=== PATIENT | female | born 1970 | race Caucasian/White ===

== ENCOUNTER 2018-03-10 16:53 | Inpatient (IN) ==
[2018-03-10 17:19] LABS: Hematocrit 37.2 % (37.0-47.0); Hemoglobin 12.4 gm/dL (12.5-16.0); Mean Cell Volume 96.1 fl (78-100); Mean Corpuscular Hgb Conc 33.3 g/dl (32-36); Mean Platelet Volume 13.3 fl (8-12.5); Neutrophil # 15.2 K/mm3 (1.3-6.0); Neutrophil % 84.9 % (42-75.0); Platelet Count 190 K/mm3 (150-450); Red Blood Count 3.87 M/mm3 (4.2-5.4); Red Cell Distribution Width 13.5 % (11.5-14.0); White Blood Count 17.9 K/mm3 (4.0-10.5)
[2018-03-10] MEDS ORDERED: INSULIN REGULAR, HUMAN 100 UNITS/ML VIAL IV ONE (17:25)
[2018-03-10] MEDS ORDERED: NORMAL SALINE 1,000 ML IV ONE ×2 (17:25→19:36)
[2018-03-10 17:41] LABS: ALT 22 U/L (19-67); AST 16 U/L (0-48); Albumin * 3.9 gm/dl (3.4-5.0); Alkaline Phosphatase * 131 U/L (50-170); Anion Gap 38.3 mmol/L (6.8-13.8); BUN/Creatinine Ratio 12.9 (9.0-21.6); Bilirubin, Total 0.8 mg/dL (0.0-1.1); Blood Urea Nitrogen 18 mg/dL (3-23); Calcium * 9.2 mg/dL (7.9-10.9); Chloride 92 mmol/L (97-106); Potassium 4.3 mmol/L (3.4-4.6); Sodium 134 mmol/L (132-142); Total Protein 7.2 gm/dL (6.2-8.2)
[2018-03-10 17:47] LABS: Glucose * 698 mg/dL (70-110)
[2018-03-10] MEDS ORDERED: INSULIN REGULAR, HUMAN 100 UNITS in NORMAL SALINE 100 ML IV PRN ×2 (17:54)
--- NOTE | 2018-03-10 18:01 | ERNOTE ---
Medical Problem HPI - General Chief Complaint: Diabetes Related Problem Time Seen by Provider: 03/10/18 17:18 Source: family Exam Limitations: no limitations - Immun/Allergies/Home Medications Immunizations: IMMUNIZATION HX Immunizations Up to Date Yes Allergies/Adverse Reactions: Allergies aspirin Allergy (Severe, Verified 03/10/18 17:12) Shortness of Breath Home Medications: HOME MEDICATIONS Atorvastatin Calcium [Lipitor] 40 mg PO DAILY 09/16/13 [Last Taken Unknown] FLUoxetine HCL [Prozac] 20 mg PO DAILY 09/16/13 [Last Taken Unknown] Levothyroxine Sodium [Synthroid] 100 mcg PO DAILY 09/16/13 [Last Taken Unknown] Lisinopril [Zestril] 2.5 mg PO DAILY 09/16/13 [Last Taken Unknown] Pantoprazole Sodium [Protonix] 40 mg PO DAILY 09/16/13 [Last Taken Unknown] Acetaminophen [Tylenol] 650 mg PO QID PRN #0 tablet 09/19/13 [Last Taken Unknown ] Albuterol Sulfate [Albuterol Sulfate Hfa] 2 puff IH Q4H PRN #0 09/19/13 [Last Taken Unknown] Insulin Glargine,Hum.rec.anlog [Lantus] 20 units SC DAILY #1 vial 09/19/13 [ Last Taken Unknown] Insulin Lispro [Humalog] 1 unit SQ AC #1 vial 09/19/13 [Last Taken Unknown] - History of Present History Narrative: Patient arrives confused with her , who states she's been throwing up all day. He states she is a known diabetic and frequently goes into DKA. Patient is unable to assist in other history or the physical. Timing: constant Severity: severe Review of Systems - Review of Systems Constitutional: Present: See HPI EYE: Present: no symptoms reported ENT: Present: no symptoms reported Respiratory: Present: no symptoms reported Cardiology: Present: no symptoms reported Gastrointestinal/Abdominal: Present: nausea, vomiting Genitourinary: Present: no symptoms reported Musculoskeletal: Present: no symptoms reported Skin: Present: no symptoms reported Neurological: Present: other - somewhat confused and responds appropriately Endocrine: Present: no symptoms reported Hematologic/Lymphatic: Present: no symptoms reported Psych: Present: no symptoms reported Medical History (Last Updated 03/10/18 @ 17:20 by Natty Barraza RN) Asthma Depression Diabetes GERD (gastroesophageal reflux disease) Hx of insertion of insulin pump Hyperlipidemia Hypothyroidism Surgical History: Surgical History (Last Updated 03/10/18 @ 17:20 by Natty Barraza RN) Surgical history unknown Family History: Family History (Last Updated 03/10/18 @ 17:20 by Natty Barraza RN) Other Unknown family medical history Social History: Preferred Language Nigerien Do you have any sikh or No cultural preference? Smoking Status Never smoker Alcohol Use rarely Drug Use marijuana Physical Exam - Physical Exam General Appearance: Present: wd/wn, alert, severe distress Head Exam: Present: normal inspection, no evidence of injury Eye Exam: Normal inspection: bilateral, PERRL: bilateral Ears, Nose, Throat: Present: normal pharynx, dry mucous membranes Neck: Present: normal inspection, nontender Respiratory: Present: no accessory muscle use, chest nontender, lungs clear, other - tachypneic Cardiovascular/Chest: Present: no murmur, normal peripheral pulses, tachycardia Gastrointestinal/Abdominal: Present: normal bowel sounds, nontender, nondistended, soft, no organomegaly Rectal Exam: Present: deferred Pelvic Exam: Present: deferred Extremity Exam: Present: normal inspection, non-tender, no edema, normal range of motion Neurological Exam: Present: other - somewhat lethargic and poorly responsive Skin Exam: Present: normal color, other - decreased skin turgor Lymphatic Exam: Present: no adenopathy ED Progress - Results and Orders Patient's Lab Results:: I have reviewed the patient's lab results. - Vital Signs Patient's Vital Signs:: I have reviewed the patient's vital signs. Vital Signs: Vital Signs 03/10/18 17:09 03/10/18 17:10 03/10/18 17:45 Temperature 37.4 C 36.7 C Pulse Rate 121 H 117 H 116 H Respiratory Rate 29 H 24 H Blood Pressure 125/52 117/52 O2 Sat by Pulse Oximetry 99 99 - Progress/Reassessment Chief Complaint: Diabetes Related Problem Departure Clinical Impression: Ketoacidosis in type II diabetes mellitus - Departure Disposition: Still a patient Condition: Critical Referrals: ABDOULAYE WHITE [Primary Care Provider] - Critical Care Note - Critical Care Note Total Time (mins): 35 Comments: Patient required both IV insulin as well as an insulin drip coupled with 2 L of fluid while in the emergency department to start to bring about some change in a patient. Patient be admitted to the intensive care unit for insulin drip and continuing hydration.
[2018-03-10] MEDS ORDERED: NORMAL SALINE 1,000 ML IV PRN (19:38)
[2018-03-10 19:48] LABS: Anion Gap 32.5 mmol/L (6.8-13.8); BUN/Creatinine Ratio 13.7 (9.0-21.6); Blood Urea Nitrogen 18 mg/dL (3-23); Calcium * 8.5 mg/dL (7.9-10.9); Carbon Dioxide 9.4 mmol/L (24-32.6); Chloride 98 mmol/L (97-106); Estimated Creat Clear 49.7; Glucose * 450 mg/dL (70-110); Potassium 3.9 mmol/L (3.4-4.6); Sodium 136 mmol/L (132-142); Troponin I Less than 0.017 ng/mL (0.00-0.10)
[2018-03-10 20:28] LABS: Urine Bilirubin 1 mg/dl (NEGATIVE); Urine Ketone Large mg/dL (NEGATIVE); Urine Nitrite Negative (NEGATIVE); Urine Protein Negative (NEGATIVE); Urine Specific Gravity 1.025 SP.GR. (1.005-1.010); Urine Urobilinogen Normal (NORMAL); Urine pH 5.5 pH (5.0-7.0)
--- NOTE | 2018-03-10 20:31 | HP ---
Chief Complaint - Chief Complaint Date of Service: 03/10/18 Time of Service: 20:12 Chief Complaint: "dka" History of Present Illness: Patient states she is currently in DKA and feels very poor. She reports being out of her insulin pump supplies for a few days, and had nausea and vomiting today. She usually uses about 34 U humalog daily, with a basal rate of 0.625U/ hr. She gives herself 1 U humalog per 15 carbs. She felt warm, but no definite fever. Denies cough, shortness of breath, abdominal pain, skin changes. She does have diarrhea at baseline. She was in DKA previously, around 4 years prior. She was given a lantus pen by her PCP, but has not used it. On arriving to the ED, history obtained from family member as she her mental status was altered. At the time of my interview, she is able to answer questions appropriately. She was started on 6U/hr insulin drip, which has been decreased to 3U/hr. She was also given one bolus NS. Medical History (Last Updated 03/10/18 @ 17:20 by Natty Barraza RN) Asthma Depression Diabetes GERD (gastroesophageal reflux disease) Hx of insertion of insulin pump Hyperlipidemia Hypothyroidism Surgical History: Surgical History (Last Updated 03/10/18 @ 17:20 by Natty Barraza RN) Surgical history unknown Family History: Family History (Last Updated 03/10/18 @ 17:20 by Natty Barraza RN) Other Unknown family medical history Social History: Preferred Language Yemeni Do you have any congregation or No cultural preference? Smoking Status Never smoker Alcohol Use rarely Drug Use marijuana Review Of Systems (GEN) - Review of Systems Generalized/Overall Review: Absent: Fever, Weight loss, Weight gain Respiratory: Absent: Cough Cardiac: Absent: Chest Pain, Edema Abdominal: Present: Nausea, Vomiting, Diarrhea. Absent: Abdominal Pain Genitourinary: Absent: Dysuria Musculoskeletal: Present: Back Pain Neurological: Absent: Seizure Skin: Present: Dryness Immunizations: IMMUNIZATION HX Immunizations Up to Date Yes Allergies/Adverse Reactions: Allergies Allergy/AdvReac Type Severity Reaction Status Date / Time aspirin Allergy Severe Shortness Verified 03/10/18 17:12 of Breath Home Medications: HOME MEDICATIONS Atorvastatin Calcium [Lipitor] 40 mg PO DAILY 09/16/13 [Last Taken Unknown] FLUoxetine HCL [Prozac] 20 mg PO DAILY 09/16/13 [Last Taken Unknown] Levothyroxine Sodium [Synthroid] 100 mcg PO DAILY 09/16/13 [Last Taken Unknown] Lisinopril [Zestril] 2.5 mg PO DAILY 09/16/13 [Last Taken Unknown] Pantoprazole Sodium [Protonix] 40 mg PO DAILY 09/16/13 [Last Taken Unknown] Acetaminophen [Tylenol] 650 mg PO QID PRN #0 tablet 09/19/13 [Last Taken Unknown ] Albuterol Sulfate [Albuterol Sulfate Hfa] 2 puff IH Q4H PRN #0 09/19/13 [Last Taken Unknown] Insulin Glargine,Hum.rec.anlog [Lantus] 20 units SC DAILY #1 vial 09/19/13 [ Last Taken Unknown] Insulin Lispro [Humalog] 1 unit SQ AC #1 vial 09/19/13 [Last Taken Unknown] Exam - Exam Vital Signs: Vital Signs - Last Taken Temp 36.7 C 03/10/18 17:45 Pulse 123 H 03/10/18 19:18 Resp 20 03/10/18 19:18 BP 126/56 03/10/18 19:18 Pulse Ox 99 03/10/18 19:18 Constitutional: Present: Oriented x3, Cooperative, Mild distress ENT Exam: Present: dry mucous membranes Eye Exam: bilateral eye: EOMI Respiratory: Present: no respiratory distress, No rales, No wheezing, other - tachypneic. Absent: respiratory distress Cardiovascular/Chest: Present: no edema, tachycardia, systolic murmur Abdomen: Present: Normal bowel sounds, soft, nontender Extremity: Absent: lower extremity edema Skin Exam: Present: normal color Neurologic: Present: normal mood/affect Eye contact: Present: cooperative Thoughts: Present: normal thought pattern Diagnostic Studies: Abnormal Lab Results 03/10/18 03/10/18 03/10/18 Range/Units 17:18 17:18 17:18 WBC 17.9 H (4.0-10.5) K/mm3 RBC 3.87 L (4.2-5.4) M/mm3 Hgb 12.4 L (12.5-16.0) gm/dL MCH 32.0 H (27-31) pg MPV 13.3 H (8-12.5) fl Immature Gran % (Auto) 0.60 H (0.001-0.429) % Immature Gran # (Auto) 0.10 H (0.000-0.0310) K/mm3 Neutrophils % 84.9 H (42-75.0) % Lymphocytes % 9.3 L (20-51) % Neutrophils # 15.2 H (1.3-6.0) K/mm3 VBG pH 7.252 L (7.32-7.43) Plasma Sodium 144 H (130-142) mmol/L Chloride 92 L (97-106) mmol/L Carbon Dioxide 8.0 L (24-32.6) mmol/L Anion Gap 38.3 H (6.8-13.8) mmol/L Est GFR (Non-Af Amer) 43 L D (60-130) mL/min Random Glucose 698 H* (70-110) mg/dL Serum Ketones Positive - 20mg/dl H (NEGATIVE) 03/10/18 Range/Units 19:29 WBC (4.0-10.5) K/mm3 RBC (4.2-5.4) M/mm3 Hgb (12.5-16.0) gm/dL MCH (27-31) pg MPV (8-12.5) fl Immature Gran % (Auto) (0.001-0.429) % Immature Gran # (Auto) (0.000-0.0310) K/mm3 Neutrophils % (42-75.0) % Lymphocytes % (20-51) % Neutrophils # (1.3-6.0) K/mm3 VBG pH (7.32-7.43) Plasma Sodium (130-142) mmol/L Chloride (97-106) mmol/L Carbon Dioxide 9.4 L (24-32.6) mmol/L Anion Gap 32.5 H (6.8-13.8) mmol/L Est GFR (Non-Af Amer) 46 L (60-130) mL/min Random Glucose 450 H D (70-110) mg/dL Serum Ketones (NEGATIVE) Laboratory Results WBC 17.9 K/mm3 (4.0-10.5) H 03/10/18 17:18 RBC 3.87 M/mm3 (4.2-5.4) L 03/10/18 17:18 Hgb 12.4 gm/dL (12.5-16.0) L 03/10/18 17:18 Hct 37.2 % (37.0-47.0) 03/10/18 17:18 MCV 96.1 fl (78-100) 03/10/18 17:18 MCH 32.0 pg (27-31) H 03/10/18 17:18 MCHC 33.3 g/dl (32-36) 03/10/18 17:18 RDW 13.5 % (11.5-14.0) 03/10/18 17:18 Plt Count 190 K/mm3 (150-450) 03/10/18 17:18 MPV 13.3 fl (8-12.5) H 03/10/18 17:18 Immature Gran % (Auto) 0.60 % (0.001-0.429) H 03/10/18 17:18 Immature Gran # (Auto) 0.10 K/mm3 (0.000-0.0310) H 03/10/18 17:18 Neutrophils % 84.9 % (42-75.0) H 03/10/18 17:18 Lymphocytes % 9.3 % (20-51) L 03/10/18 17:18 Monocytes % 5.0 % (0.0-9) 03/10/18 17:18 Eosinophils % 0.0 % (0.0-3.0) 03/10/18 17:18 Basophils % 0.2 % (0.0-1.0) 03/10/18 17:18 Nucleated RBC % 0.0 k/mm3 (0-1) 03/10/18 17:18 Neutrophils # 15.2 K/mm3 (1.3-6.0) H 03/10/18 17:18 Lymphocytes # 1.67 k/mm3 (1.5-3.5) 03/10/18 17:18 Monocytes # 0.9 k/mm3 (0.0-1.0) 03/10/18 17:18 Eosinophils # 0.0 k/mm3 (0.0-0.7) 03/10/18 17:18 Absolute Basophils 0.0 k/mm3 (0.0-0.1) 03/10/18 17:18 VBG pH 7.252 (7.32-7.43) L 03/10/18 17:18 Sodium 136 mmol/L (132-142) 03/10/18 19:29 Plasma Sodium 142 mmol/L (130-142) 03/10/18 19:29 Potassium 3.9 mmol/L (3.4-4.6) 03/10/18 19:29 Chloride 98 mmol/L (97-106) 03/10/18 19:29 Carbon Dioxide 9.4 mmol/L (24-32.6) L 03/10/18 19:29 Anion Gap 32.5 mmol/L (6.8-13.8) H 03/10/18 19:29 BUN 18 mg/dL (3-23) 03/10/18 19:29 Creatinine 1.31 mg/dL (0.4-1.4) 03/10/18 19:29 Est GFR (Non-Af Amer) 46 mL/min (60-130) L 03/10/18 19:29 BUN/Creatinine Ratio 13.7 (9.0-21.6) 03/10/18 19:29 Random Glucose 450 mg/dL (70-110) H D 03/10/18 19:29 Calcium 8.5 mg/dL (7.9-10.9) 03/10/18 19:29 Calcium Adj for Albumin 9.0 mg/dL (8.4-10.2) 03/10/18 17:18 Total Bilirubin 0.8 mg/dL (0.0-1.1) 03/10/18 17:18 AST 16 U/L (0-48) 03/10/18 17:18 ALT 22 U/L (19-67) 03/10/18 17:18 Alkaline Phosphatase 131 U/L (50-170) 03/10/18 17:18 Troponin I Less than 0.017 ng/mL (0.00-0.10) 03/10/18 19:29 Total Protein 7.2 gm/dL (6.2-8.2) 03/10/18 17:18 Albumin 3.9 gm/dl (3.4-5.0) 03/10/18 17:18 Serum Ketones Positive - 20mg/dl (NEGATIVE) H 03/10/18 17:18 Assessment/Plan - Narrative Narrative: Will continue 3 U/hr insulin drip, and administer additional NS bolus. Will then continue NS at 250 ml/hr. Stat BMP pending. Will decrease rate of drip as CO2 and anion gap correct. Will continue to closely monitor electrolytes every two hours, and add potassium to her fluids if it is less than 4.0. Troponin, blood culture, urine cultures pending. Will add D5 to fluids as glucose approaches 250. NPO until gap is closed. Likely source of DKA is nonadherence, but cultures and troponin pending. - Assessment/Plan (1) Ketoacidosis in type II diabetes mellitus Problem: Acute (2) Lactic acidosis Problem: Acute
[2018-03-10 21:00] LABS: Urine Appearance Clear (CLEAR); Urine Blood 10 /ul (NEGATIVE); Urine Color Yellow
[2018-03-10 21:01] LABS: Urine Bacteria None Seen; Urine RBC None Seen /hpf (0-5); Urine WBC None Seen /hpf (0-5)
[2018-03-10] MEDS: POTASSIUM CHLORIDE IN WATER 100 ML IV SCH ×2 (22:03→23:03)
[2018-03-10 22:16] LABS: Anion Gap 20.6 mmol/L (6.8-13.8); Carbon Dioxide 15.9 mmol/L (24-32.6); Potassium 3.5 mmol/L (3.4-4.6)
[2018-03-10] MEDS: POTASSIUM CHLORIDE 20 MEQ in DEXTROSE 5%-0.5 NORMAL SALINE 990 ML IV SCH (23:02)
[2018-03-10] MEDS: 0.5 NORMAL SALINE 1,000 ML IV PRN (23:20)
[2018-03-11 00:02] LABS: Anion Gap 18.3 mmol/L (6.8-13.8); Carbon Dioxide 15.9 mmol/L (24-32.6); Potassium 4.2 mmol/L (3.4-4.6)
[2018-03-11] MEDS: POTASSIUM CHLORIDE IN WATER 100 ML IV SCH ×5 (00:07→23:52)
[2018-03-11 00:29] LABS: CKMB 1.1 ng/mL (0.0-9.0); Troponin I 0.033 ng/mL (0.00-0.10)
[2018-03-11] MEDS ORDERED: ACETAMINOPHEN 500 MG TABLET PO PRN (01:47)
[2018-03-11 02:03] LABS: Anion Gap 19.3 mmol/L (6.8-13.8); Carbon Dioxide 15.2 mmol/L (24-32.6); Potassium 4.5 mmol/L (3.4-4.6)
[2018-03-11] MEDS: GABAPENTIN 300 MG CAPSULE PO SCH ×2 (02:08→21:32)
[2018-03-11] MEDS: HYDROXYCHLOROQUINE SULFATE 200 MG TABLET PO SCH ×2 (02:14→21:32)
[2018-03-11 03:54] LABS: Carbon Dioxide 20.2 mmol/L (24-32.6); Potassium 4.2 mmol/L (3.4-4.6)
[2018-03-11 05:48] LABS: Hematocrit 28.8 % (37.0-47.0); Hemoglobin 9.9 gm/dL (12.5-16.0); Mean Cell Volume 94.7 fl (78-100); Mean Corpuscular Hemoglobin 32.6 pg (27-31); Mean Corpuscular Hgb Conc 34.4 g/dl (32-36); Mean Platelet Volume 11.8 fl (8-12.5); Neutrophil # 11.3 K/mm3 (1.3-6.0); Neutrophil % 81.4 % (42-75.0); Platelet Count 121 K/mm3 (150-450); Red Blood Count 3.04 M/mm3 (4.2-5.4); Red Cell Distribution Width 13.4 % (11.5-14.0); White Blood Count 13.9 K/mm3 (4.0-10.5)
[2018-03-11 05:55] LABS: Anion Gap 12.6 mmol/L (6.8-13.8); Carbon Dioxide 20.3 mmol/L (24-32.6); Potassium 3.9 mmol/L (3.4-4.6)
[2018-03-11] MEDS ORDERED: INSULIN LISPRO 100 UNITS/ML VIAL SC SCH ×3 (06:45→23:30)
[2018-03-11] MEDS: 0.5 NORMAL SALINE 1,000 ML IV PRN (07:59)
--- NOTE | 2018-03-11 08:04 | PN ---
Subjective - Date and Time Seen Date: 03/11/18 Time: 07:21 Subjective Narrative: Patient reports feeling much better. No longer having nausea or vomiting. Tolerating liquids. Objective - Review of Systems Generalized/Overall Review: Denies: Fever Respiratory: Denies: Cough Abdominal: Denies: Nausea, Vomiting Genitourinary Symptoms: Denies: Dysuria - Vitals Vitals: Last Vital Signs Temp 37.2 C 03/11/18 07:13 Pulse 84 03/11/18 07:13 Resp 20 03/11/18 07:13 BP 110/52 03/11/18 07:13 Pulse Ox 97 03/11/18 07:13 - Abnormal Lab Findings Abnormal Lab Findings: Abnormal Lab Results 03/10/18 03/10/18 03/10/18 Range/Units 16:30 17:18 17:18 WBC 17.9 H (4.0-10.5) K/mm3 RBC 3.87 L (4.2-5.4) M/mm3 Hgb 12.4 L (12.5-16.0) gm/dL Hct (37.0-47.0) % MCH 32.0 H (27-31) pg Plt Count (150-450) K/mm3 MPV 13.3 H (8-12.5) fl Immature Gran % (Auto) 0.60 H (0.001-0.429) % Immature Gran # (Auto) 0.10 H (0.000-0.0310) K/mm3 Neutrophils % 84.9 H (42-75.0) % Lymphocytes % 9.3 L (20-51) % Neutrophils # 15.2 H (1.3-6.0) K/mm3 Lymphocytes # (1.5-3.5) k/mm3 Monocytes # (0.0-1.0) k/mm3 VBG pH (7.32-7.43) Sodium (132-142) mmol/L Plasma Sodium 144 H (130-142) mmol/L Chloride 92 L (97-106) mmol/L Carbon Dioxide 8.0 L (24-32.6) mmol/L Anion Gap 38.3 H (6.8-13.8) mmol/L Est GFR (Non-Af Amer) 43 L D (60-130) mL/min Random Glucose 698 H* (70-110) mg/dL Lactic Acid, Venous 6.4 H* (0.4-2.0) mmol/L Urine Glucose (UA) (NEGATIVE) mg/dL Urine Blood (NEGATIVE) /ul Urine Bilirubin (NEGATIVE) mg/dl Serum Ketones Positive - 20mg/dl H (NEGATIVE) 03/10/18 03/10/18 03/10/18 Range/Units 17:18 19:29 22:05 WBC (4.0-10.5) K/mm3 RBC (4.2-5.4) M/mm3 Hgb (12.5-16.0) gm/dL Hct (37.0-47.0) % MCH (27-31) pg Plt Count (150-450) K/mm3 MPV (8-12.5) fl Immature Gran % (Auto) (0.001-0.429) % Immature Gran # (Auto) (0.000-0.0310) K/mm3 Neutrophils % (42-75.0) % Lymphocytes % (20-51) % Neutrophils # (1.3-6.0) K/mm3 Lymphocytes # (1.5-3.5) k/mm3 Monocytes # (0.0-1.0) k/mm3 VBG pH 7.252 L (7.32-7.43) Sodium 144 H (132-142) mmol/L Plasma Sodium (130-142) mmol/L Chloride 111 H (97-106) mmol/L Carbon Dioxide 9.4 L 15.9 L (24-32.6) mmol/L Anion Gap 32.5 H 20.6 H (6.8-13.8) mmol/L Est GFR (Non-Af Amer) 46 L (60-130) mL/min Random Glucose 450 H D (70-110) mg/dL Lactic Acid, Venous (0.4-2.0) mmol/L Urine Glucose (UA) (NEGATIVE) mg/dL Urine Blood (NEGATIVE) /ul Urine Bilirubin (NEGATIVE) mg/dl Serum Ketones (NEGATIVE) 03/10/18 03/10/18 03/11/18 Range/Units 23:33 Unknown 01:50 WBC (4.0-10.5) K/mm3 RBC (4.2-5.4) M/mm3 Hgb (12.5-16.0) gm/dL Hct (37.0-47.0) % MCH (27-31) pg Plt Count (150-450) K/mm3 MPV (8-12.5) fl Immature Gran % (Auto) (0.001-0.429) % Immature Gran # (Auto) (0.000-0.0310) K/mm3 Neutrophils % (42-75.0) % Lymphocytes % (20-51) % Neutrophils # (1.3-6.0) K/mm3 Lymphocytes # (1.5-3.5) k/mm3 Monocytes # (0.0-1.0) k/mm3 VBG pH (7.32-7.43) Sodium (132-142) mmol/L Plasma Sodium (130-142) mmol/L Chloride (97-106) mmol/L Carbon Dioxide 15.9 L 15.2 L (24-32.6) mmol/L Anion Gap 18.3 H 19.3 H (6.8-13.8) mmol/L Est GFR (Non-Af Amer) (60-130) mL/min Random Glucose (70-110) mg/dL Lactic Acid, Venous (0.4-2.0) mmol/L Urine Glucose (UA) 500 H (NEGATIVE) mg/dL Urine Blood 10 H (NEGATIVE) /ul Urine Bilirubin 1 H (NEGATIVE) mg/dl Serum Ketones (NEGATIVE) 03/11/18 03/11/18 03/11/18 Range/Units 03:45 05:45 05:45 WBC 13.9 H D (4.0-10.5) K/mm3 RBC 3.04 L (4.2-5.4) M/mm3 Hgb 9.9 L (12.5-16.0) gm/dL Hct 28.8 L (37.0-47.0) % MCH 32.6 H (27-31) pg Plt Count 121 L (150-450) K/mm3 MPV (8-12.5) fl Immature Gran % (Auto) (0.001-0.429) % Immature Gran # (Auto) 0.04 H (0.000-0.0310) K/mm3 Neutrophils % 81.4 H (42-75.0) % Lymphocytes % 9.9 L (20-51) % Neutrophils # 11.3 H (1.3-6.0) K/mm3 Lymphocytes # 1.38 L (1.5-3.5) k/mm3 Monocytes # 1.2 H (0.0-1.0) k/mm3 VBG pH (7.32-7.43) Sodium (132-142) mmol/L Plasma Sodium (130-142) mmol/L Chloride (97-106) mmol/L Carbon Dioxide 20.2 L 20.3 L (24-32.6) mmol/L Anion Gap 16.0 H (6.8-13.8) mmol/L Est GFR (Non-Af Amer) (60-130) mL/min Random Glucose (70-110) mg/dL Lactic Acid, Venous (0.4-2.0) mmol/L Urine Glucose (UA) (NEGATIVE) mg/dL Urine Blood (NEGATIVE) /ul Urine Bilirubin (NEGATIVE) mg/dl Serum Ketones (NEGATIVE) Comments:: anion gap closed with latest electrolytes - Exam Constitutional: Present: Alert, Oriented x3, Cooperative, No distress ENT Exam: Present: dry mucous membranes Respiratory: Present: lungs clear, normal breath sounds, no respiratory distress Cardiovascular/Chest: Present: regular rate, rhythm, systolic murmur Abdomen: Present: Normal bowel sounds, soft, nontender Extremity: Absent: lower extremity edema Neurologic: Present: normal mood/affect Assessment/Plan - Problems/Diagnosis (1) Type 1 diabetes Problem: Acute Qualifiers: Diabetes mellitus complication status: with ketoacidosis Diabetes mellitus complication detail: without coma Qualified Code(s): E10.10 - Type 1 diabetes mellitus with ketoacidosis without coma Narrative: Patient was diagnosed at age 9, and has had a pump for several years. She ran out of her diabetic supplies, which likely led to the DKA. She denies other symptoms. Her anion gap is currently closed. Her is getting her pump supplies. Currently transitioning from the insulin drip to her home humalog. Regular diet started this morning. Will discontinue fluids if her gap stays closed and she tolerates a diet. Continue q2h electrolytes, alternating with glucose checks. (2) Rheumatoid arthritis Problem: Chronic Narrative: Is prescribed weekly methotrexate, and bid plaquenil. Will hold methotrexate, as she is unsure of her dose. Plaquenil restarted, but unavailable overnight. Will likely be able to administer later today. Continue prn Tylenol. (3) Lactic acidosis Problem: Resolved
[2018-03-11 08:53] LABS: Carbon Dioxide 23.3 mmol/L (24-32.6); Potassium 3.3 mmol/L (3.4-4.6)
[2018-03-11] MEDS: FLUoxetine HCL 20 MG CAPSULE PO SCH (09:00)
[2018-03-11] MEDS: LISINOPRIL 2.5 MG TABLET PO SCH (09:00)
[2018-03-11 10:32] LABS: Anion Gap 12.3 mmol/L (6.8-13.8); Carbon Dioxide 21.3 mmol/L (24-32.6); Potassium 3.6 mmol/L (3.4-4.6)
[2018-03-11] MEDS: POTASSIUM CHLORIDE 20 MEQ in DEXTROSE 5%-0.5 NORMAL SALINE 990 ML IV SCH (10:55)
[2018-03-11] MEDS: INSULIN LISPRO 100 UNITS/ML VIAL SC SCH ×2 (11:31→18:12)
[2018-03-11 12:57] LABS: Anion Gap 16.8 mmol/L (6.8-13.8); Carbon Dioxide 19.9 mmol/L (24-32.6); Potassium 3.7 mmol/L (3.4-4.6)
[2018-03-11] MEDS ORDERED: INSULIN GLARGINE,HUM.REC.ANLOG 100 UNITS/ML VIAL SC SCH (16:00)
[2018-03-11] MEDS: PANTOPRAZOLE SODIUM 40 MG TABLET.EC PO SCH (16:11)
[2018-03-11] MEDS ORDERED: INSULIN REGULAR, HUMAN 100 UNITS/ML VIAL IV ONE (17:06)
[2018-03-11 17:20] LABS: Anion Gap 19.8 mmol/L (6.8-13.8); Carbon Dioxide 15.6 mmol/L (24-32.6); Potassium 4.4 mmol/L (3.4-4.6)
[2018-03-11] MEDS: NORMAL SALINE 1,000 ML IV PRN ×2 (17:38→19:17)
[2018-03-11] MEDS ORDERED: INSULIN REGULAR, HUMAN 100 UNITS in NORMAL SALINE 100 ML IV PRN ×4 (18:20→19:22)
--- NOTE | 2018-03-11 18:56 | PN ---
Progess Note - Interim Date: 03/11/18 Time: 18:50 Narrative: 03/11/18 18:51 Patient's blood sugar continued to rise throughout the afternoon, to the 400's despite increasing SSI and the use of lantus. Serum ketones again present, with CO2 of 16 and AG of 20. Will transfer her back to the SCU, and restart insulin drip at 3 U/hr, with NS at 250 cc/hr.
[2018-03-11 19:15] LABS: Anion Gap 16.5 mmol/L (6.8-13.8); Carbon Dioxide 18.1 mmol/L (24-32.6); Potassium 3.6 mmol/L (3.4-4.6)
[2018-03-11 20:42] LABS: Anion Gap 9.6 mmol/L (6.8-13.8); Potassium 3.6 mmol/L (3.4-4.6)
[2018-03-11] MEDS: DEXTROSE 5%-NORMAL SALINE 1,000 ML IV PRN (20:56)
[2018-03-11 22:49] LABS: Anion Gap 11.3 mmol/L (6.8-13.8); Carbon Dioxide 24.5 mmol/L (24-32.6); Potassium 3.8 mmol/L (3.4-4.6)
[2018-03-12] MEDS: INSULIN LISPRO 100 UNITS/ML VIAL SC SCH ×2 (00:18→03:07)
[2018-03-12 00:34] LABS: Carbon Dioxide 22.6 mmol/L (24-32.6); Potassium 3.6 mmol/L (3.4-4.6)
[2018-03-12] MEDS: POTASSIUM CHLORIDE IN WATER 100 ML IV SCH (01:08)
[2018-03-12 02:38] LABS: Anion Gap 12.4 mmol/L (6.8-13.8); Carbon Dioxide 24.5 mmol/L (24-32.6); Potassium 3.9 mmol/L (3.4-4.6)
[2018-03-12 04:35] LABS: Carbon Dioxide 23.9 mmol/L (24-32.6); Potassium 3.9 mmol/L (3.4-4.6)
[2018-03-12] MEDS: DEXTROSE 5%-NORMAL SALINE 1,000 ML IV PRN (04:59)
--- NOTE | 2018-03-12 05:04 | PN ---
Subjective - Date and Time Seen Date: 03/12/18 Time: 04:58 Subjective Narrative: Gap closed overnight, and she restarted home insulin pump. She noticed the previous catheter was kinked and occluded. Was able to tolerate a sandwich without further vomiting. Objective - Review of Systems Generalized/Overall Review: Denies: Fever Respiratory: Denies: Cough Abdominal: Denies: Vomiting Genitourinary Symptoms: Denies: Dysuria - Vitals Vitals: Last Vital Signs Temp 37.0 C 03/12/18 04:27 Pulse 90 03/12/18 04:27 Resp 16 03/12/18 04:27 BP 117/65 03/12/18 04:27 Pulse Ox 98 03/12/18 04:27 - Abnormal Lab Findings Abnormal Lab Findings: Abnormal Lab Results 03/11/18 03/11/18 03/11/18 Range/Units 05:45 05:45 08:19 WBC 13.9 H D (4.0-10.5) K/mm3 RBC 3.04 L (4.2-5.4) M/mm3 Hgb 9.9 L (12.5-16.0) gm/dL Hct 28.8 L (37.0-47.0) % MCH 32.6 H (27-31) pg Plt Count 121 L (150-450) K/mm3 Immature Gran # (Auto) 0.04 H (0.000-0.0310) K/mm3 Neutrophils % 81.4 H (42-75.0) % Lymphocytes % 9.9 L (20-51) % Neutrophils # 11.3 H (1.3-6.0) K/mm3 Lymphocytes # 1.38 L (1.5-3.5) k/mm3 Monocytes # 1.2 H (0.0-1.0) k/mm3 Sodium (132-142) mmol/L Potassium 3.3 L (3.4-4.6) mmol/L Chloride (97-106) mmol/L Carbon Dioxide 20.3 L 23.3 L (24-32.6) mmol/L Anion Gap (6.8-13.8) mmol/L Serum Ketones (NEGATIVE) 03/11/18 03/11/18 03/11/18 Range/Units 09:45 12:42 17:05 WBC (4.0-10.5) K/mm3 RBC (4.2-5.4) M/mm3 Hgb (12.5-16.0) gm/dL Hct (37.0-47.0) % MCH (27-31) pg Plt Count (150-450) K/mm3 Immature Gran # (Auto) (0.000-0.0310) K/mm3 Neutrophils % (42-75.0) % Lymphocytes % (20-51) % Neutrophils # (1.3-6.0) K/mm3 Lymphocytes # (1.5-3.5) k/mm3 Monocytes # (0.0-1.0) k/mm3 Sodium (132-142) mmol/L Potassium (3.4-4.6) mmol/L Chloride (97-106) mmol/L Carbon Dioxide 21.3 L 19.9 L (24-32.6) mmol/L Anion Gap 16.8 H (6.8-13.8) mmol/L Serum Ketones Positive - 20mg/dl H (NEGATIVE) 03/11/18 03/11/18 03/11/18 Range/Units 17:06 17:18 20:30 WBC (4.0-10.5) K/mm3 RBC (4.2-5.4) M/mm3 Hgb (12.5-16.0) gm/dL Hct (37.0-47.0) % MCH (27-31) pg Plt Count (150-450) K/mm3 Immature Gran # (Auto) (0.000-0.0310) K/mm3 Neutrophils % (42-75.0) % Lymphocytes % (20-51) % Neutrophils # (1.3-6.0) K/mm3 Lymphocytes # (1.5-3.5) k/mm3 Monocytes # (0.0-1.0) k/mm3 Sodium 131 L 127 L (132-142) mmol/L Potassium (3.4-4.6) mmol/L Chloride 96 L (97-106) mmol/L Carbon Dioxide 18.1 L 15.6 L 23.0 L (24-32.6) mmol/L Anion Gap 16.5 H 19.8 H (6.8-13.8) mmol/L Serum Ketones (NEGATIVE) 03/11/18 03/12/18 03/12/18 Range/Units 22:40 00:25 02:26 WBC (4.0-10.5) K/mm3 RBC (4.2-5.4) M/mm3 Hgb (12.5-16.0) gm/dL Hct (37.0-47.0) % MCH (27-31) pg Plt Count (150-450) K/mm3 Immature Gran # (Auto) (0.000-0.0310) K/mm3 Neutrophils % (42-75.0) % Lymphocytes % (20-51) % Neutrophils # (1.3-6.0) K/mm3 Lymphocytes # (1.5-3.5) k/mm3 Monocytes # (0.0-1.0) k/mm3 Sodium 143 H (132-142) mmol/L Potassium (3.4-4.6) mmol/L Chloride 108 H 107 H 110 H (97-106) mmol/L Carbon Dioxide 22.6 L (24-32.6) mmol/L Anion Gap (6.8-13.8) mmol/L Serum Ketones (NEGATIVE) 03/12/18 Range/Units 04:25 WBC (4.0-10.5) K/mm3 RBC (4.2-5.4) M/mm3 Hgb (12.5-16.0) gm/dL Hct (37.0-47.0) % MCH (27-31) pg Plt Count (150-450) K/mm3 Immature Gran # (Auto) (0.000-0.0310) K/mm3 Neutrophils % (42-75.0) % Lymphocytes % (20-51) % Neutrophils # (1.3-6.0) K/mm3 Lymphocytes # (1.5-3.5) k/mm3 Monocytes # (0.0-1.0) k/mm3 Sodium (132-142) mmol/L Potassium (3.4-4.6) mmol/L Chloride 110 H (97-106) mmol/L Carbon Dioxide 23.9 L (24-32.6) mmol/L Anion Gap (6.8-13.8) mmol/L Serum Ketones (NEGATIVE) - Exam Constitutional: Present: No distress Respiratory: Present: normal breath sounds, no respiratory distress Cardiovascular/Chest: Present: regular rate, rhythm, systolic murmur. Absent: edema Neurologic: Present: normal mood/affect Assessment/Plan - Problems/Diagnosis (1) Type 1 diabetes Problem: Chronic Qualifiers: Diabetes mellitus complication status: with ketoacidosis Diabetes mellitus complication detail: without coma Qualified Code(s): E10.10 - Type 1 diabetes mellitus with ketoacidosis without coma Narrative: Gap again resolved overnight. She changed the pump site for her home insulin pump, and reported the catheter was kinked and occluded, which is probably why her blood sugar increased yesterday. She tolerated a diet overnight. Fluids have been decreased and the drip has been off for 4 hours, and her gap has stayed closed. Will increased the length of time between glucose and electrolyte checks, and she can transfer to med/surg status. Most likely home tonight with close follow up with her PCP/help desk team leader to determine if she will add long acting insulin to her regimen. (2) Rheumatoid arthritis Problem: Chronic (3) Lactic acidosis Problem: Resolved
[2018-03-12] MEDS: PANTOPRAZOLE SODIUM 40 MG TABLET.EC PO SCH (07:09)
[2018-03-12 08:51] LABS: Anion Gap 8.7 mmol/L (6.8-13.8); Carbon Dioxide 25.3 mmol/L (24-32.6)
[2018-03-12] MEDS: LISINOPRIL 2.5 MG TABLET PO SCH (09:12)
[2018-03-12] MEDS: GABAPENTIN 300 MG CAPSULE PO SCH (09:12)
[2018-03-12] MEDS: HYDROXYCHLOROQUINE SULFATE 200 MG TABLET PO SCH (09:12)
[2018-03-12] MEDS: FLUoxetine HCL 20 MG CAPSULE PO SCH (09:12)
[2018-03-12 12:48] LABS: Anion Gap 7.5 mmol/L (6.8-13.8); Carbon Dioxide 26.2 mmol/L (24-32.6); Potassium 3.7 mmol/L (3.4-4.6)
--- NOTE | 2018-03-12 16:02 | DS ---
(1) Type 1 diabetes Problem: Chronic Qualifiers: Diabetes mellitus complication status: with ketoacidosis Diabetes mellitus complication detail: without coma Qualified Code(s): E10.10 - Type 1 diabetes mellitus with ketoacidosis without coma (2) Rheumatoid arthritis Problem: Chronic (3) Lactic acidosis Problem: Resolved Description of Stay: Patient had been out of her insulin pump supplies, and started feeling poorly. She was able to obtain the supplies, but was not feeling well enough to start her pump. She was brought to the ED with vomiting, and was found to be in DKA. No other infectious or cardiac symptoms. She responded well to fluids and insulin, and an attempt was made to transition to her home pump. Her sugars increased despite increasing her pump insulin, and she went back into DKA. She corrected quickly, and her pump site was changed. Her catheter was kinked and possibly occluded. Her insulin pump then functioned well, and she was discharged two days after admission. She will be obtaining more equipment next week to help place her pump sites to help prevent malfunctions in the future. Procedures Performed: none Results and Findings: Pending Mircobiology Results 03/10/18 19:29 Blood Blood Culture - Preliminary NO GROWTH 24 HOURS Lab Pending Results 03/10/18 16:30: Lactic Acid, Venous 6.4 H* 03/10/18 17:18: WBC 17.9 H, RBC 3.87 L, Hgb 12.4 L, Hct 37.2, MCV 96.1, MCH 32.0 H, MCHC 33.3, RDW 13.5, Plt Count 190, MPV 13.3 H, Immature Gran % (Auto) 0.60 H, Immature Gran # (Auto) 0.10 H, Neutrophils % 84.9 H, Lymphocytes % 9.3 L , Monocytes % 5.0, Eosinophils % 0.0, Basophils % 0.2, Nucleated RBC % 0.0, Neutrophils # 15.2 H, Lymphocytes # 1.67, Monocytes # 0.9, Eosinophils # 0.0, Absolute Basophils 0.0 03/10/18 17:18: Sodium 134, Plasma Sodium 144 H, Potassium 4.3, Chloride 92 L, Carbon Dioxide 8.0 L, Anion Gap 38.3 H, BUN 18, Creatinine 1.40, Est GFR (Non- Af Amer) 43 L D, BUN/Creatinine Ratio 12.9, Random Glucose 698 H*, Calcium 9.2, Calcium Adj for Albumin 9.0, Total Bilirubin 0.8, AST 16, ALT 22, Alkaline Phosphatase 131, Total Protein 7.2, Albumin 3.9, Serum Ketones Positive - 20mg/ dl H 03/10/18 17:18: VBG pH 7.252 L 03/10/18 19:29: Sodium 136, Plasma Sodium 142, Potassium 3.9, Chloride 98, Carbon Dioxide 9.4 L, Anion Gap 32.5 H, BUN 18, Creatinine 1.31, Est GFR (Non- Af Amer) 46 L, BUN/Creatinine Ratio 13.7, Random Glucose 450 H D, Calcium 8.5, Troponin I Less than 0.017 03/10/18 22:05: Sodium 144 H, Potassium 3.5, Chloride 111 H, Carbon Dioxide 15.9 L, Anion Gap 20.6 H 03/10/18 22:05: Lactic Acid, Venous 0.9 03/10/18 23:33: Sodium 135, Potassium 4.2, Chloride 105, Carbon Dioxide 15.9 L, Anion Gap 18.3 H 03/10/18 : Urine Color Yellow, Urine Appearance Clear, Urine pH 5.5, Ur Specific [place] 1.025, Urine Protein Negative, Urine Glucose (UA) 500 H, Urine Ketones Large, Urine Blood 10 H, Urine Nitrate Negative, Urine Bilirubin 1 H, Urine Ictotest Negative, Urine Urobilinogen Normal, Ur Leukocyte Esterase Negative, Urine RBC None seen, Urine WBC None seen, Ur Epithelial Cells None seen, Urine Bacteria None seen, Urine Culture Comments No culture indicated 03/11/18 00:01: Creatine Kinase 66, CK-MB (CK-2) 1.1, CK-MB (CK-2) Rel Index 1.7 , Troponin I 0.033 03/11/18 01:50: Sodium 134, Potassium 4.5, Chloride 104, Carbon Dioxide 15.2 L, Anion Gap 19.3 H 03/11/18 03:45: Sodium 138, Potassium 4.2, Chloride 106, Carbon Dioxide 20.2 L, Anion Gap 16.0 H 03/11/18 05:45: Sodium 134, Potassium 3.9, Chloride 105, Carbon Dioxide 20.3 L, Anion Gap 12.6 03/11/18 05:45: WBC 13.9 H D, RBC 3.04 L, Hgb 9.9 L, Hct 28.8 L, MCV 94.7, MCH 32.6 H, MCHC 34.4, RDW 13.4, Plt Count 121 L, MPV 11.8, Immature Gran % (Auto) 0.30, Immature Gran # (Auto) 0.04 H, Neutrophils % 81.4 H, Lymphocytes % 9.9 L, Monocytes % 8.3, Eosinophils % 0.0, Basophils % 0.1, Nucleated RBC % 0.0, Neutrophils # 11.3 H, Lymphocytes # 1.38 L, Monocytes # 1.2 H, Eosinophils # 0.0 , Absolute Basophils 0.0 03/11/18 08:19: Sodium 135, Potassium 3.3 L, Chloride 104, Carbon Dioxide 23.3 L , Anion Gap 11.0 03/11/18 09:45: Sodium 133, Potassium 3.6, Chloride 103, Carbon Dioxide 21.3 L, Anion Gap 12.3 03/11/18 12:42: Sodium 135, Potassium 3.7, Chloride 102, Carbon Dioxide 19.9 L, Anion Gap 16.8 H 03/11/18 17:05: Serum Ketones Positive - 20mg/dl H 03/11/18 17:06: Sodium 131 L, Potassium 3.6, Chloride 100, Carbon Dioxide 18.1 L , Anion Gap 16.5 H 03/11/18 17:18: Sodium 127 L, Potassium 4.4 D, Chloride 96 L, Carbon Dioxide 15.6 L, Anion Gap 19.8 H 03/11/18 20:30: Sodium 134, Potassium 3.6, Chloride 105, Carbon Dioxide 23.0 L, Anion Gap 9.6 03/11/18 22:40: Sodium 140, Potassium 3.8, Chloride 108 H, Carbon Dioxide 24.5, Anion Gap 11.3 03/11/18 : VBG pH 7.375 03/12/18 00:25: Sodium 136, Potassium 3.6, Chloride 107 H, Carbon Dioxide 22.6 L , Anion Gap 10.0 03/12/18 02:26: Sodium 143 H, Potassium 3.9, Chloride 110 H, Carbon Dioxide 24.5 , Anion Gap 12.4 03/12/18 04:25: Sodium 141, Potassium 3.9, Chloride 110 H, Carbon Dioxide 23.9 L , Anion Gap 11.0 03/12/18 08:35: Sodium 136, Potassium 4.0, Chloride 106, Carbon Dioxide 25.3, Anion Gap 8.7 03/12/18 12:34: Sodium 136, Potassium 3.7, Chloride 106, Carbon Dioxide 26.2, Anion Gap 7.5 Discharge Location: Home Disposition: Home self-care Condition: Fair Discharge Activity: Activity as tolerated Discharge Diet: Consistent carbs Referrals: ABDOULAYE WHITE [Primary Care Provider] - Complete Home Medications List: Complete Home Medication List: Atorvastatin Calcium [Lipitor] 40 mg PO DAILY 09/16/13 FLUoxetine HCL [Prozac] 40 mg PO DAILY 09/16/13 Levothyroxine Sodium [Synthroid] 100 mcg PO [id number] 09/16/13 Lisinopril [Zestril] 2.5 mg PO DAILY 09/16/13 Pantoprazole Sodium [Protonix] 40 mg PO DAILY 09/16/13 Albuterol Sulfate [Albuterol Sulfate Hfa] 2 puff IH Q4H PRN #0 09/19/13 Acetaminophen [Non-Aspirin Extra Strength] 1,000 mg PO Q4H PRN 03/10/18 Gabapentin [Neurontin] 300 mg PO BID 03/10/18 Hydroxychloroquine Sulfate [Plaquenil] 200 mg PO BID 03/10/18 Insulin Pump Cartridge [T:Slim G4] 1 each SQ .COMPLEX 03/10/18 Methotrexate Sodium [Methotrexate] 15 mg PO .WEEKLY Mondays03/10/18 Multivitamin [Multivitamins] 1 tab PO DAILY 03/10/18 Levothyroxine Sodium [Synthroid] 200 mcg PO MO 03/11/18
[2018-03-12 17:09] VITALS: BP 143/74
== END 2018-03-12 17:00 | disposition home or self-care (01) | DRG 639 ==
LOC: ER 16:53 → SCU 18:05 → MS 03-11 13:50 → SCU 03-11 18:43 → MS 03-12 13:01
PROVIDERS: ADMIT Family Medicine; ATTEND Family Medicine
CPT/HCPCS: 36415; 71010; 71045; 80048; 80051; 80053; 81001; 82009; 82550; 82553; 82800; 83605; 84484; 85025; 87040; 93005; 96361; 96365; 99291